=== PATIENT | female | born 1990 | race Caucasian/White ===

== ENCOUNTER 2017-09-19 09:34 | Inpatient (IN) | payer MEDICAID ==
[2017-09-19 11:15] LABS: CHLORIDE,CL 109 mmol/L (98-110); SODIUM,NA 137 mmol/L (136-146)
[2017-09-19] MEDS ORDERED: Sodium Chloride 0.9% 10 ML Syringe FLUSH PRN (13:31)
[2017-09-19] MEDS ORDERED: Sodium Chloride 0.9% 2.5 ML Syringe FLUSH PRN (13:31)
[2017-09-19] MEDS ORDERED: ceFAZolin 2 GM in Premix Bag 1 BAG IV ONE (13:31)
[2017-09-19] MEDS ORDERED: Citric Acid/Sodium Citrate Solution 30 ML Cup PO ONE (13:45)
[2017-09-19] MEDS ORDERED: Oxytocin/0.9 % Sodium Chloride 30 UNIT/500 ML BAG IV SCH (13:45)
[2017-09-19] MEDS: Lactated Ringers 1,000 ML IV SCH ×3 (14:10→18:28)
--- NOTE | 2017-09-19 15:09 | PCM.PREANE ---
Preanesthetic Assessment - Anesthesia/Transfusion/Family Hx Anesthesia History: Prior Anesthesia Without Reaction - Review of Systems General: No Symptoms Pulmonary: No Symptoms Cardiovascular: No Symptoms Gastrointestinal: No Symptoms Neurological: No Symptoms Other: Reports: None - Physical Assessment Height: 5 ft 4 in Weight: 77.111 kg ASA Class: 2E Mental Status: Alert & Oriented x3 Airway Class: Mallampati = 2 Dentition: Reports: Missing Tooth/Teeth (Multiple missing) Thyro-Mental Finger Breadths: 3 Mouth Opening Finger Breadths: 3 ROM/Head Extension: Full Lungs: Clear to Auscultation, Normal Respiratory Effort Cardiovascular: Regular Rate, Regular Rhythm - Lab Values: Laboratory Last Values WBC 7.06 K/uL (4.0-11.0) 09/19/17 10:29 RBC 3.82 M/uL (4.30-5.90) L 09/19/17 10:29 Hgb 11.9 g/dL (12.0-16.0) L 09/19/17 10:29 Hct 35.7 % (36.0-46.0) L 09/19/17 10:29 MCV 93.5 fL (80.0-98.0) 09/19/17 10:29 MCH 31.2 pg (27.0-32.0) 09/19/17 10:29 MCHC 33.3 g/dL (31.0-37.0) 09/19/17 10:29 RDW Std Deviation 44.6 fl (28.0-62.0) 09/19/17 10:29 RDW Coeff of Hakan 13 % (11.0-15.0) 09/19/17 10:29 Plt Count 158 K/uL (150-400) 09/19/17 10:29 MPV 10.00 fL (7.40-12.00) 09/19/17 10:29 Nucleated RBC % 0.0 /100WBC 09/19/17 10:29 Nucleated RBCs # 0 K/uL 09/19/17 10:29 Sodium 137 mmol/L (136-146) 09/19/17 10:24 Potassium 3.7 mmol/L (3.5-5.1) 09/19/17 10:24 Chloride 109 mmol/L (98-110) 09/19/17 10:24 Carbon Dioxide 20 mmol/L (21-31) L 09/19/17 10:24 BUN 9 mg/dL (6.0-23.0) 09/19/17 10:24 Creatinine 0.6 mg/dL (0.6-1.5) 09/19/17 10:24 Est Cr Clr Drug Dosing 123.77 mL/min 09/19/17 10:24 Estimated GFR (MDRD) > 60.0 ml/min 09/19/17 10:24 Glucose 80 mg/dL (60-110) 09/19/17 10:24 Uric Acid 3.8 mg/dL (2.1-6.2) 09/19/17 10:24 Calcium 8.5 mg/dL (8.8-10.8) L 09/19/17 10:24 Total Bilirubin 0.3 mg/dL (0.1-1.5) 09/19/17 10:24 AST 15 IU/L (5-40) 09/19/17 10:24 ALT 12 IU/L (8-54) 09/19/17 10:24 Alkaline Phosphatase 171 (40-150) H 09/19/17 10:24 Total Protein 6.1 g/dL (6.0-8.0) 09/19/17 10:24 Albumin 3.2 g/dL (3.5-5.0) L 09/19/17 10:24 Globulin 2.9 g/dL (2.0-3.5) 09/19/17 10:24 Albumin/Globulin Ratio 1.1 (1.3-2.8) L 09/19/17 10:24 Membrane Rupture NEGATIVE 09/19/17 09:50 Blood Type B POSITIVE 09/19/17 10:24 Antibody Screen POSITIVE 09/19/17 10:24 Prewarmed Antibody Srcn NEGATIVE 09/19/17 10:24 Antibody Identification Cancelled 09/19/17 10:24 Cold Antibody Screen POSITIVE 09/19/17 10:24 - Allergies Allergies/Adverse Reactions: Allergies Allergy/AdvReac Type Severity Reaction Status Date / Time shell fish Allergy Anaphylactic Uncoded 09/08/17 10:22 Shock - Acknowledgements Anesthesia Type Planned: General Anesthesia, Spinal Pt an Appropriate Candidate for the Planned Anesthesia: Yes Alternatives and Risks of Anesthesia Discussed w Pt/Guardian: Yes Pt/Guardian Understands and Agrees with Anesthesia Plan: Yes PreAnesthesia Questionnaire HEENT History: Reports: None Cardiovascular History: Reports: None Respiratory History: Reports: None Gastrointestinal History: Reports: GERD Genitourinary History: Reports: None FIELD CONTRACTOR History: Reports: : 5 Para: 3 LMP (Approximate): Musculoskeletal History: Reports: None Neurological History: Reports: Seizure (with tramadol) Psychiatric History: Reports: Anxiety, Depression Endocrine/Metabolic History: Reports: None Hematologic History: Reports: None Immunologic History: Reports: None Oncologic (Cancer) History: Reports: None Dermatologic History: Reports: None - Infectious Disease History Infectious Disease History: Reports: None - Past Surgical History HEENT Surgical History: Reports: Adenoidectomy, Tonsillectomy Female Surgical History: Reports: Section (x 3) - SUBSTANCE USE Smoking Status *Q: Never Smoker - CURRENT (IN HOUSE) MEDS Current Meds: Current Medications Oxytocin/Sodium Chloride (Oxytocin 30 Unit/500 Ml-Ns) 30 unit in 500 mls @ 250 mls/hr IV TITRATE NOLVIA Lactated Ringer's (Ringers, Lactated) 1,000 mls @ 500 mls/hr IV .BOLUS NOLVIA Last Admin: 09/19/17 14:10 Dose: 500 mls/hr Sodium Chloride (Saline Flush) 10 ml FLUSH ASDIRECTED PRN PRN Reason: Keep Vein Open Sodium Chloride (Saline Flush) 2.5 ml FLUSH ASDIRECTED PRN PRN Reason: Keep Vein Open Discontinued Medications Citric Acid/Sodium Citrate (Bicitra Solution) 30 ml PO ONETIME ONE Stop: 09/19/17 13:46 Last Admin: 09/19/17 14:33 Dose: 30 ml Cefazolin Sodium/Dextrose 2 gm (/ Premix) 50 mls @ 100 mls/hr IV ONETIME ONE Stop: 09/19/17 14:00
[2017-09-19] MEDS ORDERED: Morphine PF 10 MG/10 ML SDV ONE (15:32)
[2017-09-19] MEDS ORDERED: Ondansetron 4 MG/2 ML SDV ONE (15:32)
[2017-09-19] MEDS ORDERED: Oxytocin 10 Units/1 ML SDV ONE ×2 (15:32)
[2017-09-19] MEDS ORDERED: ceFAZolin 1 GM Vial ONE (15:32)
[2017-09-19] MEDS ORDERED: Sodium Chloride 0.9% 20 ML ONE (15:32)
[2017-09-19] MEDS ORDERED: Octyl 2-Cyanoacrylate 1 Tube ONE (15:46)
--- NOTE | 2017-09-19 17:01 | PCM.OPNOTE ---
- General Post-Op/Procedure Note Date of Surgery/Procedure: 09/19/17 Operative Procedure(s): repeat low transverse Findings: Liveborn female 89 3330 grams, lower uterine segment markedly thinned, recommend no further pregnancies. Pre Op Diagnosis: 39 5/7 weeks, prior x3, desires repeat, no recent care. Post-Op Diagnosis: Same Anesthesia Technique: Spinal Primary Surgeon: Odette Hassan Anesthesia Provider: Lynn Schofield Mechanical Manufacturing Engineer: Vijay Moss Pathology: none Fluid Replacement, Intraop: 1,200 EBL in mLs: 400 Complications: None Known. Condition: Good
[2017-09-19] MEDS ORDERED: Lanolin 100% Cream 7 GM Tube TOP PRN (17:02)
[2017-09-19] MEDS ORDERED: Bisacodyl 10 MG Supp RECTAL PRN (17:02)
[2017-09-19] MEDS ORDERED: Ondansetron 4 MG/2 ML SDV IV PRN (17:02)
[2017-09-19] MEDS ORDERED: Acetaminophen/oxyCODONE 325-5 MG Tab PO PRN (17:02)
[2017-09-19] MEDS ORDERED: Measles, Mumps & Rubella Vaccine 0.5 ML SDV SUBCUT ONE (17:02)
[2017-09-19] MEDS ORDERED: Nalbuphine 10 MG/1 ML Vial IVPUSH PRN (17:05)
[2017-09-19] MEDS ORDERED: Naloxone 0.4 MG/ML Syringe IVPUSH PRN (17:05)
[2017-09-19] MEDS ORDERED: diphenhydrAMINE 50 MG/ML SDV IVPUSH PRN (17:05)
[2017-09-19] MEDS ORDERED: fentaNYL 100 MCG/2 ML SDV IVPUSH PRN (17:06)
[2017-09-19] MEDS: Ketorolac 30 MG/ML SDV IVPUSH SCH ×2 (17:26→23:27)
--- NOTE | 2017-09-19 17:30 | PCM.POSTAN ---
POST ANESTHESIA ASSESSMENT - MENTAL STATUS Mental Status: Alert, Oriented - RESPIRATORY Respiratory Status: Respiratory Rate WNL, Airway Patent, O2 Saturation Stable - CARDIOVASCULAR CV Status: Pulse Rate WNL, Blood Pressure Stable - GASTROINTESTINAL GI Status: No Symptoms - POST OP HYDRATION Hydration Status: Adequate & Stable
--- NOTE | 2017-09-19 19:47 | HP ---
DATE OF : 1990 PRIMARY CARE PHYSICIAN: None PCP CHIEF COMPLAINT: Prior delivery, 39 and 5/7th weeks. HISTORY OF PRESENT ILLNESS: This is a 27-year-old female, G4, P4, with one prior twin , and three prior deliveries. She presents at 39 and 5/7th weeks' gestation. She has had no local care except for two visits to Labor and Delivery. Since June, her previous care was in [place] and confirms her EDC of 09/21/2017. She presented initially with contractions. She had no cervical change. At a recent Labor and Delivery visit, she had a positive antibody screen. This was repeated today and it turned out that the antibodies were cold antibodies. She reports a seizure earlier in the . She was evaluated by Neurology. She was told that her body was very sensitive to pain, but she was not diagnosed with a seizure disorder. PAST MEDICAL HISTORY: Positive for reported seizures, however, Neurology consult did not confirm seizure disorder, depression, and depression. PAST SURGICAL HISTORY: Three deliveries, T and A, and myringotomy tubes. ALLERGIES: Tramadol which causes seizures. Shellfish which causes anaphylaxis. MEDICATIONS: vitamins. She has discontinued her antidepressant. SOCIAL HISTORY: She is single, sexually active. Denies use of tobacco, alcohol, or street drugs. FAMILY HISTORY: Positive for diabetes. Family history of autism. REVIEW OF SYSTEMS: She reports a headache since this morning. No visual changes. No nausea or vomiting, no GI changes. No cardiovascular changes. No pulmonary changes. No dermatological changes. No urology changes except some occasional incontinence. LABORATORY STUDIES: Include blood type B positive. Previous laboratories from March show a positive anti-M with a titer of 1:2 today, cold antibody titer. Hemoglobin 11.8, platelet count of 185,000. Pap test was low-grade ANDREA. She today was rubella nonimmune on laboratory studies, but her record reports rubella immune. VDRL, nonreactive. Urine culture was negative. Hepatitis B negative; HIV, negative; gonorrhea and Chlamydia negative. She has had two prior urine drug screens at the time of presentation to Labor and Delivery, both of which were negative. She has hepatitis C, nonreactive. PHYSICAL EXAMINATION: VITAL SIGNS: Blood pressure is 113/68, pulse is 73, and heart tones 130s, moderate variability. Occasional variable decelerations. Nonreactive. Contractions are occasional. GENERAL: She is alert and oriented, in no acute distress. LUNGS: Clear. CV: Regular rate with no murmur. ABDOMEN: Soft, gravid, and nontender. Estimated weight on ultrasound was 8 pounds 4 ounces with normal amniotic fluid index and BPP was 10/10. EXTREMITIES: Show trace edema. VAGINA: 1, 70, -3 station. ASSESSMENT AND PLAN: A 39 and 5/7th weeks' intrauterine . Irregular contractions. Prior delivery x3. Confirmed a 39 and 5/7th weeks' intrauterine with no local care. Positive antibody screen for cold antibodies. Plan; we have observed for labor which has not occurred. testing is reassuring. Antibody titer showed cold antibodies. Records have been obtained to confirm EDC. I did offer proceeding with repeat at this time versus waiting until non-holiday, however, her would need to be done this week and given her close interval of prior deliveries, I do recommend proceeding with a repeat severe delivery with risks discussed including bleeding, infection, injury to bowel, bladder, blood vessels, injury to other organs, risk of thromboembolic event, and risk of anesthesia. Understanding all these risks, she does desire to proceed with a repeat low-transverse section. PINO / LIZ /[id number]
--- NOTE | 2017-09-19 20:35 | OR ---
SURGEON: Odette Hassan M.D. DATE OF PROCEDURE: 09/19/2017 PREOPERATIVE DIAGNOSES: 1. A 39 and 5/7th weeks' intrauterine . 2. Prior delivery x3. Desires repeat. POSTOPERATIVE DIAGNOSES: 1. A 39 and 5/7th weeks' intrauterine . 2. Prior delivery x3. Desires repeat. PROCEDURE: Repeat low-transverse section. ANESTHESIA: Spinal. EBL: 400 mL. FLUIDS: 1200 mL of crystalloid. FINDINGS: Live-born male, score 8 and 9. Weighing 3330 g, normal-appearing tubes and ovaries. The lower uterine segment was extremely thin. I recommend no further pregnancies for this patient, however, as she has had no recent care, we are unable to get approval for tubal at this time, but she was informed of my recommendation. COMPLICATIONS: None known. DISPOSITION: Stable to recovery. BRIEF HISTORY: This is a 27-year-old female, she is G4, P3-0-0-4 with one prior twin delivery followed by 2 repeat C-sections. She had care in [place] with documented EDC of 09/21/2017. Records were obtained. Other complications with the included low-grade ANDREA Pap and this has not been followed up at this time. She has a questionable history of seizures during the , but neurologist felt that this was related to her body's over response to pain and gave her possible diagnosis of fibromyalgia. She presented to Labor and Delivery with irregular contractions. No cervical change. She has had two prior visits to Labor and Delivery. Urine drug screens at both times had been negative and was not repeated today. Laboratory from her most recent visit showed a positive antibody on her type and screen, but they were not able to identify it. The antibody titer was repeated today and was a cold antibody. Given the fact that she has had no local care and given the fact that she is 39 and 5/7th weeks with three prior deliveries and avoiding labor would be prudent. I did offer to proceed with a repeat low-transverse section at this time with risks discussed including bleeding, infection, injury to bowel, bladder, blood vessels, injury to other organs, risk of thromboembolic event, and risk of anesthesia. Understanding all these risks, she does desire to proceed. DESCRIPTION OF PROCEDURE: With the patient in left tilt position and under adequate spinal analgesia, the abdomen was prepped with chlorhexidine and draped in the usual fashion for abdominal surgery. Shah catheter had been placed. SCDs had been placed and an appropriate time-out was held. After documentation of adequate analgesia, the prior cicatrix was excised and the incision was carried through the subcutaneous tissue to the fascia, which was scored transversely in the midline. The fascial incision was extended laterally using curved Degroot scissors. The fascia was elevated from the underlying rectus muscle using sharp and blunt dissection. The rectus muscle was , and a finger was used to enter the peritoneal cavity. There were no anterior adhesions. The incision was extended using sharp and blunt dissection. The visceroperitoneum of the lower uterine segment was incised to develop an adequate bladder flap. The Richard retractor was placed. A transverse curvilinear incision was made over the lower uterine segment with a scalpel. A finger was used to enter the amniotic cavity. Clear fluid was noted. Again the lower uterine segment was extremely thin, and there was a window on the left side extending into the broad ligament. Clear fluid was noted. The head was delivered via the uterine incision, and the infant was bulb suctioned by nose and mouth. After delivery of the infant's body, the cord was clamped x2 and cut and the infant was handed to Dr. Santos, who was present at the time of delivery. The is a liveborn male, score 8 and 9. Weighing 3330 g. Cord blood was collected for cord ABGs as well as routine cord blood sampling. The placenta was removed by manual extraction. The cervix was opened with a ring forceps. The uterus was cleaned with a dry laparotomy tape. The uterine incision was closed with a running lock suture of 0 Polysorb followed by an imbricating layer of 0 Polysorb. Running suture was utilized to close the window in the left broad ligament. The uterine incision was inspected and was completely hemostatic. The tubes and ovaries appeared normal. The pericolic gutters and posterior cul-de-sac were cleaned with a wet laparotomy tape. The Richard retractor was removed. The uterine incision was again inspected and was completely hemostatic. The rectus muscle and peritoneum were loosely approximated in the midline using a running mattress suture of 0 Polysorb. The posterior aspect of the fascia was then inspected as well as the muscle and any area of bleeding that was noted was cauterized. The fascial incision was closed with a running suture of 0 Polysorb. Subcutaneous tissue was irrigated. Any areas of bleeding that were noted were cauterized. The skin was closed with a running subcuticular suture of 2-0 Polysorb followed by skin glue. Final sponge, needle, and instrument counts were reported as correct. There were no known complications. is in nursery in good condition. Mother remains in recovery in good condition. PINO / LIZ /[id number]
[2017-09-19] MEDS: Docusate Sodium 100 MG Cap PO SCH (20:50)
[2017-09-20] MEDS: Lactated Ringers 1,000 ML IV SCH (02:37)
[2017-09-20] MEDS: Ketorolac 30 MG/ML SDV IVPUSH SCH ×3 (05:37→17:27)
[2017-09-20] MEDS: Docusate Sodium 100 MG Cap PO SCH ×2 (08:17→20:45)
[2017-09-20] MEDS: PARoxetine 20 MG Tab PO SCH (08:17)
--- NOTE | 2017-09-20 08:56 | PCM.PNPP ---
- General Info Date of Service: 09/20/17 Functional Status: Reports: Pain Controlled, Tolerating Diet, Ambulating - Review of Systems General: Reports: No Symptoms HEENT: Reports: No Symptoms Pulmonary: Reports: No Symptoms Cardiovascular: Reports: No Symptoms Gastrointestinal: Reports: No Symptoms Genitourinary: Reports: No Symptoms Musculoskeletal: Reports: No Symptoms Skin: Reports: No Symptoms Neurological: Reports: No Symptoms Psychiatric: Reports: No Symptoms - General Info Date of Service: 09/20/17 - Patient Data Vital Signs - Most Recent: Last Vital Signs Temp 35.9 C 09/20/17 05:00 Pulse 73 09/20/17 07:00 Resp 18 09/20/17 07:00 BP 121/66 09/20/17 05:00 Pulse Ox 99 09/20/17 07:00 Weight - Most Recent: 77.111 kg I&O - Last 24 Hours: Intake & Output 09/19/17 09/20/17 09/20/17 22:59 06:59 14:59 Intake Total 2900 Output Total 430 Balance 2470 Lab Results - Last 24 Hours: Laboratory Results - last 24 hr 09/19/17 09/19/17 09/19/17 Range/Units 09:50 10:24 10:24 WBC (4.0-11.0) K/uL RBC (4.30-5.90) M/uL Hgb (12.0-16.0) g/dL Hct (36.0-46.0) % MCV (80.0-98.0) fL MCH (27.0-32.0) pg MCHC (31.0-37.0) g/dL RDW Std Deviation (28.0-62.0) fl RDW Coeff of Hakan (11.0-15.0) % Plt Count (150-400) K/uL MPV (7.40-12.00) fL Nucleated RBC % /100WBC Nucleated RBCs # K/uL Sodium 137 (136-146) mmol/L Potassium 3.7 (3.5-5.1) mmol/L Chloride 109 (98-110) mmol/L Carbon Dioxide 20 L (21-31) mmol/L BUN 9 (6.0-23.0) mg/dL Creatinine 0.6 (0.6-1.5) mg/dL Est Cr Clr Drug Dosing 123.77 mL/min Estimated GFR (MDRD) > 60.0 ml/min Glucose 80 (60-110) mg/dL Uric Acid 3.8 (2.1-6.2) mg/dL Calcium 8.5 L (8.8-10.8) mg/dL Total Bilirubin 0.3 (0.1-1.5) mg/dL AST 15 (5-40) IU/L ALT 12 (8-54) IU/L Alkaline Phosphatase 171 H (40-150) Total Protein 6.1 (6.0-8.0) g/dL Albumin 3.2 L (3.5-5.0) g/dL Globulin 2.9 (2.0-3.5) g/dL Albumin/Globulin Ratio 1.1 L (1.3-2.8) Membrane Rupture NEGATIVE Blood Type B POSITIVE Antibody Screen POSITIVE Prewarmed Antibody Srcn NEGATIVE Antibody Identification Cancelled Cold Antibody Screen POSITIVE 09/19/17 09/20/17 Range/Units 10:29 05:06 WBC 7.06 (4.0-11.0) K/uL RBC 3.82 L (4.30-5.90) M/uL Hgb 11.9 L 10.8 L (12.0-16.0) g/dL Hct 35.7 L 31.9 L (36.0-46.0) % MCV 93.5 (80.0-98.0) fL MCH 31.2 (27.0-32.0) pg MCHC 33.3 (31.0-37.0) g/dL RDW Std Deviation 44.6 (28.0-62.0) fl RDW Coeff of Hakan 13 (11.0-15.0) % Plt Count 158 (150-400) K/uL MPV 10.00 (7.40-12.00) fL Nucleated RBC % 0.0 /100WBC Nucleated RBCs # 0 K/uL Sodium (136-146) mmol/L Potassium (3.5-5.1) mmol/L Chloride (98-110) mmol/L Carbon Dioxide (21-31) mmol/L BUN (6.0-23.0) mg/dL Creatinine (0.6-1.5) mg/dL Est Cr Clr Drug Dosing mL/min Estimated GFR (MDRD) ml/min Glucose (60-110) mg/dL Uric Acid (2.1-6.2) mg/dL Calcium (8.8-10.8) mg/dL Total Bilirubin (0.1-1.5) mg/dL AST (5-40) IU/L ALT (8-54) IU/L Alkaline Phosphatase (40-150) Total Protein (6.0-8.0) g/dL Albumin (3.5-5.0) g/dL Globulin (2.0-3.5) g/dL Albumin/Globulin Ratio (1.3-2.8) Membrane Rupture Blood Type Antibody Screen Prewarmed Antibody Srcn Antibody Identification Cold Antibody Screen Med Orders - Current: Current Medications Bisacodyl (Dulcolax) 10 mg RECTAL .ONCE PRN PRN Reason: Constipation Diphenhydramine HCl (Benadryl) 25 mg IVPUSH Q6H PRN PRN Reason: Itching or Nausea Diphenhydramine HCl (Benadryl) 25 mg IVPUSH Q4H PRN PRN Reason: Itching Stop: 09/20/17 17:05 Docusate Sodium (Colace) 100 mg PO BID [facility] Last Admin: 09/20/17 08:17 Dose: 100 mg Emollient Ointment (Lansinoh Hpa) 0 gm TOP ASDIRECTED PRN PRN Reason: Sore Nipples Fentanyl (Sublimaze) 50 mcg IVPUSH Q45M PRN PRN Reason: Pain (severe 7-10) Stop: 09/20/17 17:06 Lactated Ringer's (Ringers, Lactated) 1,000 mls @ 125 mls/hr IV ASDIRECTED [facility] Last Admin: 09/20/17 02:37 Dose: 125 mls/hr Ibuprofen (Motrin) 800 mg PO Q8H PRN PRN Reason: mild pain or fever Ketorolac Tromethamine (Toradol) 30 mg IVPUSH Q6H [facility] Stop: 09/20/17 17:16 Last Admin: 09/20/17 05:37 Dose: 30 mg Nalbuphine HCl (Nubain) 5 mg IVPUSH Q3H PRN PRN Reason: Pruritis Stop: 09/20/17 17:05 Naloxone HCl (Narcan) 0.1 mg IVPUSH ONETIME PRN PRN Reason: Respiratory Depression Stop: 09/20/17 17:05 Ondansetron HCl (Zofran) 4 mg IV Q4H PRN PRN Reason: Nausea/Vomiting Last Admin: 09/19/17 23:28 Dose: 4 mg Oxycodone/Acetaminophen (Percocet 325-5 Mg) 1 tab PO Q4H PRN PRN Reason: Pain (moderate 4-6) Oxycodone/Acetaminophen (Percocet 325-5 Mg) 2 tab PO Q4H PRN PRN Reason: Pain (moderate 4-6) Paroxetine HCl (Paxil) 20 mg PO DAILY [facility] Last Admin: 09/20/17 08:17 Dose: 20 mg Discontinued Medications Cefazolin Sodium (Ancef) Confirm Administered Dose 2 gm .ROUTE .STK-MED ONE Stop: 09/19/17 15:33 Citric Acid/Sodium Citrate (Bicitra Solution) 30 ml PO ONETIME ONE Stop: 09/19/17 13:46 Last Admin: 09/19/17 14:33 Dose: 30 ml Cefazolin Sodium/Dextrose 2 gm (/ Premix) 50 mls @ 100 mls/hr IV ONETIME ONE Stop: 09/19/17 14:00 Oxytocin/Sodium Chloride (Oxytocin 30 Unit/500 Ml-Ns) 30 unit in 500 mls @ 250 mls/hr IV TITRATE [facility] Lactated Ringer's (Ringers, Lactated) 1,000 mls @ 500 mls/hr IV .BOLUS [facility] Last Admin: 09/19/17 15:48 Dose: 500 mls/hr Sodium Chloride (Normal Saline) Confirm Administered Dose 20 mls @ as directed .ROUTE .STK-MED ONE Stop: 09/19/17 15:33 Measles/Mumps/Rubella Vaccine Live (M-M-R Ii Vaccine) 0.5 ml SUBCUT .ONCE ONE Stop: 09/19/17 17:03 Morphine Sulfate (Duramorph Pf) Confirm Administered Dose 10 mg .ROUTE .STK-MED ONE Stop: 09/19/17 15:33 Octyl Cyanoacrylate (Dermabond Advance) Confirm Administered Dose 1 applic .ROUTE .STK-MED ONE Stop: 09/19/17 15:47 Ondansetron HCl (Zofran) Confirm Administered Dose 4 mg .ROUTE .STK-MED ONE Stop: 09/19/17 15:33 Oxytocin (Pitocin) Confirm Administered Dose 10 unit .ROUTE .STK-MED ONE Stop: 09/19/17 15:33 Oxytocin (Pitocin) Confirm Administered Dose 10 unit .ROUTE .STK-MED ONE Stop: 09/19/17 15:33 Sodium Chloride (Saline Flush) 10 ml FLUSH ASDIRECTED PRN PRN Reason: Keep Vein Open Sodium Chloride (Saline Flush) 2.5 ml FLUSH ASDIRECTED PRN PRN Reason: Keep Vein Open - Interaction Disposition, : [place] in Room with Family Interaction: Holding Infant Feeding: Bottle Fed Infant Support Person: - Recovery Exam Fundal Tone: Firm Fundal Level: At Umbilicus Fundal Placement: Midline Lochia Amount: Scant Lochia Color: Rubra/Red Perineum Description: Intact, Minimal Bruising/Swelling Episiotomy/Laceration: None Bladder Status: Indwelling Catheter in Place Urinary Elimination: Indwelling Catheter - Exam General: Alert, Oriented HEENT: Pupils Equal Neck: Supple Lungs: Clear to Auscultation, Normal Respiratory Effort Cardiovascular: Regular Rate, Regular Rhythm GI/Abdominal Exam: Normal Bowel Sounds, Soft, Non-Tender, No Distention, No Mass Extremities: Normal Inspection, Non-Tender, No Pedal Edema Skin: Warm, Dry, Intact Wound/Incisions: Dressing Dry and Intact Neurological: No New Focal Deficit Psy/Mental Status: Alert, Normal Affect, Normal Mood - Problem List & Annotations (1) Prev B-epvybszy-ibzaxrs SNOMED Code(s): 558636553 Code(s): O34.219 - MATERNAL CARE FOR UNSP TYPE SCAR FROM PREVIOUS DEL Status: Acute Current Visit: Yes (2) Abnormal Pap smear of cervix SNOMED Code(s): 902114864 Code(s): R87.619 - UNSP ABNORMAL CYTOLOG FINDINGS IN SPECMN FROM CERVIX UTERI Status: Acute Current Visit: Yes (3) Rubella nonimmune status, delivered, current hospitalization SNOMED Code(s): 337336156 Code(s): O99.89 - OTH DISEASES AND CONDITIONS COMPL PREG/CHLDBRTH; Z28.3 - UNDERIMMUNIZATION STATUS Status: Acute Current Visit: Yes (4) Depression SNOMED Code(s): 88360155 Code(s): F32.9 - MAJOR DEPRESSIVE DISORDER, SINGLE EPISODE, UNSPECIFIED Status: Acute Current Visit: Yes Qualifiers: Depression Type: depression during Trimester: third trimester Qualified Code(s): O99.343 - Other mental disorders complicating , third trimester; F32.9 - Major depressive disorder, single episode, unspecified ; F32.9 - Major depressive disorder, single episode, unspecified; F32.9 - Major depressive disorder, single episode, unspecified - Problem List Review Problem List Initiated/Reviewed/Updated: Yes - My Orders Last 24 Hours: My Active Orders 09/19/17 09:44 Vaginal Exam [RC] Click to Edit Vital Signs [RC] PER UNIT ROUTINE 09/19/17 10:38 BPP wo NST [US] Routine OB 2 Or 3 Tri Sgl 1st Gest [US] Routine 09/19/17 13:31 Non Stress Test [RC] PER UNIT ROUTINE Vital Signs [RC] PER UNIT ROUTINE 09/19/17 17:02 Patient Status [ADT] Routine Ambulate [RC] PER UNIT ROUTINE Antiembolic Devices [RC] PER UNIT ROUTINE Communication Order [RC] PER UNIT ROUTINE May Shower [RC] ASDIRECTED Notify Provider Intake and Out [RC] ASDIRECTED Notify Provider Vital Signs [RC] ASDIRECTED RT Incentive Spirometry [RC] Q2HWA Acetaminophen/oxyCODONE [Percocet 325-5 MG] 1 tab PO Q4H PRN Acetaminophen/oxyCODONE [Percocet 325-5 MG] 2 tab PO Q4H PRN Bisacodyl [Dulcolax] 10 mg RECTAL .ONCE PRN Lanolin [Lansinoh HPA] See Dose Instructions TOP ASDIRECTED PRN Ondansetron [Zofran] 4 mg IV Q4H PRN Abdominal Binder [OM.PC] Routine Assess Lochia [WOMSER] Per Unit Routine Assess Uterine Involution [WOMSER] Per Unit Routine Breast Pump [WOMSER] Per Unit Routine Peripheral IV Discontinue [OM.PC] Routine Sequential Compression Device [OM.PC] Per Unit Routine Resuscitation Status Routine 09/19/17 17:15 Ketorolac [Toradol] 30 mg IVPUSH Q6H Lactated Ringers [Ringers, Lactated] 1,000 ml IV ASDIRECTED 09/19/17 21:00 Docusate Sodium [Colace] 100 mg PO BID 09/20/17 09:00 PARoxetine [Paxil] 20 mg PO DAILY 09/20/17 23:00 Ibuprofen [Motrin] 800 mg PO Q8H PRN diphenhydrAMINE [Benadryl] 25 mg IVPUSH Q6H PRN 09/20/17 Breakfast Regular Diet [DIET] - Assessment Assessment:: POD#1 after repeat LTCS, started on Paxil, mood is ok, bottle feeding, denies pain, ambulating. - Plan Plan:: Continue postop care, discussed starting oral pain medications. Anticipate discharge in am.
--- NOTE | 2017-09-20 10:22 | PCM48HPAN ---
Post Anesthesia Note - EVALUATION WITHIN 48HRS OF ANESTHETIC Vital Signs in Normal Range: Yes Patient Participated in Evaluation: Yes Respiratory Function Stable: Yes Airway Patent: Yes Cardiovascular Function Stable: Yes Hydration Status Stable: Yes Pain Control Satisfactory: Yes Nausea and Vomiting Control Satisfactory: Yes Mental Status Recovered: Yes
[2017-09-20] MEDS: Acetaminophen/oxyCODONE 325-5 MG Tab PO PRN ×2 (14:43→19:57)
--- NOTE | 2017-09-20 16:27 | US ---
EXAM DATE: 09/19/17 PATIENT'S AGE: 27 Patient: ARMEN LIVINGSTON Facility: [place], [place] Site . Site : 1992 Study: US OB Pelvis [id number] 11:26:44 AM Ordering Physician: Ayesha Matthew Final Report: Indication: Biophysical profile score. Findings: Single live intrauterine gestation in cephalic presentation is noted. Two points each are given for breathing movements, gross body movements, cardiac activity and amniotic fluid for a biophysical profile score 8/8. Estimated weight is 3,684 Grams based on biparietal diameter of 9.4 cm, head circumference of 33.8 cm, abdominal circumference of 35.5 cm and femur length of 7.6 cm. cardiac activity is noted 144 beats per minute. Impression: Single live intrauterine gestation with biophysical profile score 8/8. Dictated by Edda Newton MD @ Sep 19 2017 12:04PM (Electronic Signature) Report Signed by Proxy. TARAS
--- NOTE | 2017-09-20 16:27 | US ---
EXAM DATE: 09/19/17 PATIENT'S AGE: 27 Patient: ARMEN LIVINGSTON Facility: [place], [place] Site . Site : 1992 Study: US OB Pelvis [id number]/25/2017 11:26:44 AM Ordering Physician: Ayesha Matthew Final Report: Indication: Biophysical profile score. Findings: Single live intrauterine gestation in cephalic presentation is noted. Two points each are given for breathing movements, gross body movements, cardiac activity and amniotic fluid for a biophysical profile score 8/8. Estimated weight is 3,684 Grams based on biparietal diameter of 9.4 cm, head circumference of 33.8 cm, abdominal circumference of 35.5 cm and femur length of 7.6 cm. cardiac activity is noted 144 beats per minute. Impression: Single live intrauterine gestation with biophysical profile score 8/8. Dictated by Edda Newton MD @ Sep 19 2017 12:04PM (Electronic Signature) Report Signed by Proxy. TARAS
[2017-09-20] MEDS ORDERED: Ibuprofen 800 MG Tab PO PRN (23:00)
[2017-09-20] MEDS ORDERED: diphenhydrAMINE 50 MG/ML SDV IVPUSH PRN (23:00)
--- NOTE | 2017-09-21 08:21 | PCM.PNPP ---
- General Info Date of Service: 09/21/17 Admission Dx/Problem (Free Text): 27 yo P4 s/p Repeat Subjective Update: Patient denies any complains ,normal lochia Functional Status: Reports: Pain Controlled, Tolerating Diet, Ambulating, Urinating - Review of Systems General: Reports: No Symptoms HEENT: Reports: No Symptoms Pulmonary: Reports: No Symptoms Cardiovascular: Reports: No Symptoms Gastrointestinal: Reports: No Symptoms Genitourinary: Reports: No Symptoms Musculoskeletal: Reports: No Symptoms Skin: Reports: No Symptoms Neurological: Reports: No Symptoms Psychiatric: Reports: No Symptoms - General Info Date of Service: 09/21/17 - Patient Data Vital Signs - Most Recent: Last Vital Signs Temp 36.7 C 09/21/17 04:00 Pulse 74 09/21/17 04:00 Resp 16 09/21/17 04:00 BP 104/58 L 09/21/17 04:00 Pulse Ox 97 09/21/17 04:00 Weight - Most Recent: 77.111 kg Med Orders - Current: Current Medications Bisacodyl (Dulcolax) 10 mg RECTAL .ONCE PRN PRN Reason: Constipation Diphenhydramine HCl (Benadryl) 25 mg IVPUSH Q6H PRN PRN Reason: Itching or Nausea Docusate Sodium (Colace) 100 mg PO BID [facility] Last Admin: 09/20/17 20:45 Dose: 100 mg Emollient Ointment (Lansinoh Hpa) 0 gm TOP ASDIRECTED PRN PRN Reason: Sore Nipples Lactated Ringer's (Ringers, Lactated) 1,000 mls @ 125 mls/hr IV ASDIRECTED [facility] Last Admin: 09/20/17 02:37 Dose: 125 mls/hr Ibuprofen (Motrin) 800 mg PO Q8H PRN PRN Reason: mild pain or fever Last Admin: 09/21/17 06:11 Dose: 800 mg Ondansetron HCl (Zofran) 4 mg IV Q4H PRN PRN Reason: Nausea/Vomiting Last Admin: 09/19/17 23:28 Dose: 4 mg Oxycodone/Acetaminophen (Percocet 325-5 Mg) 1 tab PO Q4H PRN PRN Reason: Pain (moderate 4-6) Last Admin: 09/20/17 19:57 Dose: 1 tab Oxycodone/Acetaminophen (Percocet 325-5 Mg) 2 tab PO Q4H PRN PRN Reason: Pain (moderate 4-6) Paroxetine HCl (Paxil) 20 mg PO DAILY [facility] Last Admin: 09/20/17 08:17 Dose: 20 mg Discontinued Medications Cefazolin Sodium (Ancef) Confirm Administered Dose 2 gm .ROUTE .STK-MED ONE Stop: 09/19/17 15:33 Citric Acid/Sodium Citrate (Bicitra Solution) 30 ml PO ONETIME ONE Stop: 09/19/17 13:46 Last Admin: 09/19/17 14:33 Dose: 30 ml Diphenhydramine HCl (Benadryl) 25 mg IVPUSH Q4H PRN PRN Reason: Itching Stop: 09/20/17 17:05 Fentanyl (Sublimaze) 50 mcg IVPUSH Q45M PRN PRN Reason: Pain (severe 7-10) Stop: 09/20/17 17:06 Cefazolin Sodium/Dextrose 2 gm (/ Premix) 50 mls @ 100 mls/hr IV ONETIME ONE Stop: 09/19/17 14:00 Oxytocin/Sodium Chloride (Oxytocin 30 Unit/500 Ml-Ns) 30 unit in 500 mls @ 250 mls/hr IV TITRATE [facility] Lactated Ringer's (Ringers, Lactated) 1,000 mls @ 500 mls/hr IV .BOLUS [facility] Last Admin: 09/19/17 15:48 Dose: 500 mls/hr Sodium Chloride (Normal Saline) Confirm Administered Dose 20 mls @ as directed .ROUTE .STK-MED ONE Stop: 09/19/17 15:33 Ketorolac Tromethamine (Toradol) 30 mg IVPUSH Q6H [facility] Stop: 09/20/17 17:16 Last Admin: 09/20/17 17:27 Dose: 30 mg Measles/Mumps/Rubella Vaccine Live (M-M-R Ii Vaccine) 0.5 ml SUBCUT .ONCE ONE Stop: 09/19/17 17:03 Morphine Sulfate (Duramorph Pf) Confirm Administered Dose 10 mg .ROUTE .STK-MED ONE Stop: 09/19/17 15:33 Nalbuphine HCl (Nubain) 5 mg IVPUSH Q3H PRN PRN Reason: Pruritis Stop: 09/20/17 17:05 Naloxone HCl (Narcan) 0.1 mg IVPUSH ONETIME PRN PRN Reason: Respiratory Depression Stop: 09/20/17 17:05 Octyl Cyanoacrylate (Dermabond Advance) Confirm Administered Dose 1 applic .ROUTE .STK-MED ONE Stop: 09/19/17 15:47 Ondansetron HCl (Zofran) Confirm Administered Dose 4 mg .ROUTE .STK-MED ONE Stop: 09/19/17 15:33 Oxytocin (Pitocin) Confirm Administered Dose 10 unit .ROUTE .STK-MED ONE Stop: 09/19/17 15:33 Oxytocin (Pitocin) Confirm Administered Dose 10 unit .ROUTE .STK-MED ONE Stop: 09/19/17 15:33 Sodium Chloride (Saline Flush) 10 ml FLUSH ASDIRECTED PRN PRN Reason: Keep Vein Open Sodium Chloride (Saline Flush) 2.5 ml FLUSH ASDIRECTED PRN PRN Reason: Keep Vein Open - Infant Interaction Disposition, : [place] in Room with Family Interaction: Holding Infant Feeding: Bottle Fed Support Person: - Recovery Exam Fundal Tone: Firm Fundal Level: 1 Fingerbreadths Below Umbilicus Fundal Placement: Midline Lochia Amount: Scant Lochia Color: Rubra/Red Perineum Description: Intact, Minimal Bruising/Swelling Episiotomy/Laceration: None Bladder Status: Voiding Urinary Elimination: Voided - Exam General: Alert, Oriented HEENT: Pupils Equal Lungs: Clear to Auscultation Cardiovascular: Regular Rate, Regular Rhythm GI/Abdominal Exam: Normal Bowel Sounds (pfannestiel skin incision c/d/i ) Extremities: Normal Inspection Skin: Warm - Problem List & Annotations (1) Prev C-ebizrtyn-pateilq SNOMED Code(s): 602545704 Code(s): O34.219 - MATERNAL CARE FOR UNSP TYPE SCAR FROM PREVIOUS DEL Status: Acute Current Visit: Yes - Problem List Review Problem List Initiated/Reviewed/Updated: Yes - Assessment Assessment:: POD#2 after repeat LTCS, started on Paxil, mood is ok, bottle feeding, denies pain, ambulating. - Plan Plan:: Discharge home today .
[2017-09-21] MEDS: PARoxetine 20 MG Tab PO SCH (12:13)
[2017-09-21] MEDS: Docusate Sodium 100 MG Cap PO SCH (12:13)
== END 2017-09-21 11:10 | disposition home or self-care (01) | DRG 766 ==
LOC: MW.OBCHECK 09:34 → MW.OB 09:36 → MW.OBCHECK 09:40 → MW.OB 09:40 → OBSVTOIN 16:25
PROVIDERS: ADMIT Obstetrics & Gynecology; ATTEND Obstetrics & Gynecology
PROC: 10D00Z1 Extraction of Products of Conception, Low, Open Approach (ICD-10-PCS; principal; 2017-09-19)
DX: O34.211 Maternal care for low transverse scar from previous cesarean delivery (principal); O09.33 Supervision of pregnancy with insufficient antenatal care, third trimester; Z3A.39 39 weeks gestation of pregnancy; Z88.8 Allergy status to other drugs, medicaments and biological substances; M79.7 Fibromyalgia
CPT/HCPCS: 01961; 36415; 59025; 76805; 76805-26; 76819; 76819-26; 80053; 84112; 84550; 85014; 85018; 85027; 86156; 86850; 86900; 86901; 90707; A9270-GY; J0690; J1885; J2270; J2405; J2590; J7120